=== PATIENT | male | born 1975 ===

== ENCOUNTER 2019-05-08 09:05 | Inpatient (IN) | payer OTHER ==
--- NOTE | 2019-05-07 15:00 | NUR ---
[employer] translation services used to obtained medical history with outside sales account representative Antonette ID # [id number].
[2019-05-08] VITALS (15 sets, daily range): BP systolic 116–164; BP diastolic 73–111
[~2019-05-08] VITALS: Ht 171.4 cm; Wt 101.6 kg
[~2019-05-08 09:05] MED LIST: NKM; ceFAZolin sod 2 GM in D5W 110 ML IVPB ONE
[2019-05-08] MEDS ORDERED: Thrombin 5000 units TOPIC ONE (09:41)
[2019-05-08] MEDS ORDERED: Gelfoam Size TOPIC ONE (09:41)
[2019-05-08] MEDS ORDERED: Rocuronium Bromide 50mg/5ml Inj IV ONE (09:42)
[2019-05-08] MEDS ORDERED: Bacitracin 50000 Units Vial ONE (09:42)
[2019-05-08] MEDS ORDERED: LR 1000ml 1,000 ML IVLG SCH (09:44)
[2019-05-08] MEDS ORDERED: Labetalol 5mg/ml 20ml vial IV PRN (09:45)
[2019-05-08] MEDS ORDERED: oxyCODONE HCL/Acetaminophen 5/325mg ORAL PRN (09:45)
[2019-05-08] MEDS ORDERED: fentaNYL 100 mcg/2 mL IV PRN (09:45)
[2019-05-08] MEDS ORDERED: LORazepam Inj 2mg/ml 1ml IV PRN (09:45)
[2019-05-08] MEDS ORDERED: HYDROcodone/Acetamin 7.5/325 tab ORAL PRN ×3 (09:45→16:00)
[2019-05-08] MEDS ORDERED: Atropine Sulfate 0.4mg/ml inj IVP PRN (09:45)
[2019-05-08] MEDS ORDERED: Meperidine 50mg/ml Inj(FOR RIGORS ONLY) IVP PRN (09:45)
[2019-05-08] MEDS ORDERED: Midazolam 2mg/2ml Inj IVP PRN (09:45)
[2019-05-08] MEDS ORDERED: Acetaminophen (Non formulary) 100 ML IV ONE (09:45)
[2019-05-08] MEDS ORDERED: Metoclopramide 10mg/2ml Inj IVP PRN ×2 (09:45→16:00)
[2019-05-08] MEDS ORDERED: DiphenhydrAMINE 50mg/ml Inj IVP PRN (09:45)
[2019-05-08] MEDS ORDERED: HYDROcodone/Acetamin 5/325 tab ORAL PRN ×2 (09:45→16:00)
[2019-05-08] MEDS ORDERED: Ketorolac 30mg Inj IV PRN ×2 (09:45)
--- NOTE | 2019-05-08 09:45 | Anethesia Preoperative Eval ---
Anesthesia Pre-op PMH/ROS General Date of Evaluation: May 08, 2019 Time of Evaluation: 10:56 Anesthesiologist: Harmeet ASA Score: ASA 3 Mallampati Score Class I : Soft palate, uvula, fauces, pillars visible Class II: Soft palate, uvula, fauces visible Class III: Soft palate, base of uvula visible Class IV: Only hard plate visible Mallampati Classification: Class II Surgeon: Norma Diagnosis: Back Pain Surgical Procedure: ADR C5-6, ACDF C6-7 Anesthesia History: none Family History: no anesthesia problems Allergies: Coded Allergies: No Known Allergies (Unverified , 05/07/19) Medications: see eMAR Patient NPO?: Yes Past Medical History Cardiovascular: Reports: HTN Gastrointestinal/Genitourinary: Reports: GERD Other: obesity - BMI 36 PSxH Narrative: Exploratory Laparotomy Anesthesia Pre-op Phys. Exam Physician Exam Last Vital Signs Date Time Temp Pulse Resp B/P (MAP) Pulse Ox O2 Delivery O2 Flow Rate FiO2 05/08/19 09:42 97.5 75 20 141/92 (108) 96 05/08/19 09:39 Room Air Constitutional: NAD Neurologic: CN 2-12 intact Cardiovascular: RRR Respiratory: CTA Gastrointestinal: S/NT/ND Airway Exam Mallampati Score: Class II MO: full ROM: full Teeth: intact Anesthesia Pre-op A/P Risk Assessment & Plan Assessment: ASA 3 Plan: GA, SED, GlideScope Go Status Change Before Surgery: No Pre-Antibiotics Dru Grams Ancef IV Given Within 1 Hr of Incision: Yes Time Given: 11:16 Tera Ga MD May 08, 2019 09:45
--- NOTE | 2019-05-08 09:59 | Immediate Post-Op Evaluation ---
Immediate Post-Op Evalulation Immediate Post-Op Evalulation Procedure: ADR C5-6, ACDF C6-7 Date of Evaluation: May 08, 2019 Time of Evaluation: 14:03 IV Fluids: 800 LR Blood Products: 0 Estimated Blood Loss: 50 Urinary Output: 250 Blood Pressure Systolic: 164 Blood Pressure Diastolic: 111 Pulse Rate: 70 Respiratory Rate: 16 O2 Sat by Pulse Oximetry: 100 Temperature (Fahrenheit): 97 Pain Score (1-10): 2 Nausea: No Vomiting: No Complications 0 Patient Status: awake, reacts, patent, extubated, none Hydration Status: adequate Dru Grams Ancef IV Given Within 1 Hr of Incision: Yes Time Given: 11:16 Tera Ga MD May 08, 2019 09:59
[2019-05-08] MEDS ORDERED: Lidocaine 1% Plain 30 ml INJ ONE ×2 (10:00→12:43)
[2019-05-08] MEDS ORDERED: Dexamethasone 4mg/ml vial ONE (10:01)
[2019-05-08] MEDS ORDERED: Sodium Chloride 10ml vial INJ ONE (10:01)
[2019-05-08] MEDS ORDERED: Lidocaine 1% MPF 10mg/ml 5ml ONE (10:01)
[2019-05-08] MEDS ORDERED: fentaNYL 100 mcg/2 mL IV ONE ×2 (10:02→11:58)
[2019-05-08] MEDS ORDERED: NS Irrig 1000ml ONE (11:00)
[2019-05-08] MEDS ORDERED: Propofol 1,000mg/ 100ml btl IV ONE (11:00)
[2019-05-08] MEDS ORDERED: Sterile Water Irrig 1000ml IRRIG ONE (11:00)
[2019-05-08] MEDS ORDERED: Neostigmine 1mg/ml 10ml Inj ONE (11:00)
[2019-05-08] MEDS ORDERED: LR 1000ml ONE (11:00)
--- NOTE | 2019-05-08 11:16 | Pre-Procedure Note/Attestation ---
Pre-Procedure Note/Attestation Complete Prior to Procedure Planned Procedure: not applicable Procedure Narrative: Cervical 56 Artificial disc replacement. C67 Anterior cervical discectomy and fusion Indications for Procedure Pre-Operative Diagnosis: herniation C56,67 Attestation I attest that I discussed the nature of the procedure; its benefits; risks and complications; and alternatives (and the risks and benefits of such alternatives ), prior to the procedure, with the patient (or the patient's legal customer support representative). I attest that, if there was a reasonable possibility of needing a blood transfusion, the patient (or the patient's legal customer support representative) was given the [facility] standardized written summary, pursuant to the Jack Terri Blood Safety Act ([place] Health and Safety Code # 1645, as amended). I attest that I re-evaluated the patient just prior to the surgery and that there has been no change in the patient's H&P, except as documented below: Moncho Green MD May 08, 2019 11:16
--- NOTE | 2019-05-08 11:17 | Brief Operative Note ---
Immediate Post Operative Note Operative Note Chief Complaint: neck pain and radiculopathy Pre-op Diagnosis: herniation C56,67 Procedure: Cervical 56 Artificial disc replacement. C67 Anterior cervical discectomy and fusion Post-op Diagnosis: same as pre-op Findings: consistent w/pre-op dx studies Surgeon: Norma Merchandising Specialist: Ashtyn Anesthesiologist: Harmeet Anesthesia: general Specimen: none Complications: none Condition: stable Fluids: IVF Estimated Blood Loss: minimal Drains: none Implant(s) used?: Yes - prodisc c sz 5, nuvasive interlock c sz 6, screws 13x3 Moncho Green MD May 08, 2019 11:17
[2019-05-08] MEDS ORDERED: Glycopyrrolate 0.2mg/ml 1ml Vial ONE (13:19)
--- NOTE | 2019-05-08 13:51 | 48 Hour Post Anesthesia Eval ---
Post Anesthesia Evaluation Procedure: ADR C5-6, ACDF C6-7 Date of Evaluation: May 08, 2019 Time of Evaluation: 16:13 Blood Pressure Systolic: 155 0: 74 Pulse Rate: 72 Respiratory Rate: 18 Temperature (Fahrenheit): 98.2 O2 Sat by Pulse Oximetry: 99 Airway: patent Nausea: No Vomiting: No Pain Intensity: 2 Hydration Status: adequate Cardiopulmonary Status: Stable Mental Status/LOC: patient returned to baseline Follow-up Care/Observations: 0 Post-Anesthesia Complications: 0 Follow-up care needed: N/A Tera Ga MD May 08, 2019 13:51
[2019-05-08] MEDS: Hydromorphone 0.5mg/0.5ml inj IVP PRN ×2 (14:01→14:26)
--- NOTE | 2019-05-08 14:22 | Diagnostic Imaging Report ---
Indication: Intraoperative imaging COMPARISON: None FINDINGS: 9 fluoroscopic images were obtained intraoperatively. Fluoroscopic time 44 seconds. Localization followed by anterior discectomy and fusion demonstrated at C5-6 and C6-7. C5-6 is notable for prosthetic metallic disc. Anterior fixation screws noted at C6-7 with prosthetic disc. IMPRESSION: Intraoperative imaging as described above
--- NOTE | 2019-05-08 15:10 | NUR ---
NURSE NOTES: Received report from Adry [employer]. Pt is a/o x4, in bed. No discomfort noted. Denies any pain at this time. Neck surgical site is C/D/I. Ice pack is on. Lt wrist IV is patent. Bed in lowest position, call light within reach. Will continue to monitor.
--- NOTE | 2019-05-08 15:43 | NUR ---
NURSE NOTES: Pt's BP 160/98. Dr. Kimble was notified and ordered clonidine 0.1mg q4 prn if sbp>150. Noted and carried out.
[2019-05-08] MEDS ORDERED: Morphine Sulfate 2mg/ml Inj(IV/IM USE ONLY) IV PRN (16:00)
[2019-05-08] MEDS ORDERED: Naloxone 0.4mg/ml Inj IVP PRN (16:00)
[2019-05-08] MEDS ORDERED: HYDROmorphone 1mg/ml Carpuject IVP PRN (16:00)
[2019-05-08] MEDS: Dexamethasone 4mg/ml vial IVP SCH ×2 (16:00→23:38)
[2019-05-08] MEDS ORDERED: Milk of Magnesia 30ml Ud ORAL PRN (16:00)
[2019-05-08] MEDS ORDERED: Morphine Sulfate 4mg/ml Inj (IV USE ONLY) IV PRN (16:00)
[2019-05-08] MEDS ORDERED: Chloraseptic Spray 20mL Bottle ORAL PRN (16:30)
[2019-05-08] MEDS: NS w/KCl 20mEq 1000ml 1,000 ML IV SCH (17:42)
[2019-05-08] MEDS: Docusate 100mg cap ORAL SCH (18:39)
[2019-05-08] MEDS: Docusate Sod/Senna tab ORAL SCH (18:39)
[2019-05-08] MEDS: ceFAZolin sod 1 GM in D5W 55 ML IV SCH (18:40)
--- NOTE | 2019-05-08 19:30 | NUR ---
NURSE NOTES: Receive a report from DYLAN Torres. Round is done. Pt is awake and alert. No acute distress noted. No noted nausea/ vomiting, headache. Op site is clear without bleeding signs. On ice pack on op site. IV running on left wrist without signs of infiltration. Call light within reach. Will continue to monitor.
--- NOTE | 2019-05-08 19:34 | NUR ---
HAND-OFF: Report given to DYLAN Falcon. Pt is stable.
[2019-05-08] MEDS: Morphine Sulfate 4mg/ml Inj (IV USE ONLY) IV PRN (20:23)
--- NOTE | 2019-05-08 21:00 | NUR ---
NURSE NOTES: Left side shoulder to neck pain relieved after pain medication. No noted nausea or vomiting. Keep ice pack on op site and back. Show how to move with body alignment. Pt verbalizes understanding. Will continue to monitor.
[2019-05-09] VITALS: BP 116/69
--- NOTE | 2019-05-09 02:00 | Operative Note - Dictated ---
DATE OF OPERATION: 05/08/2019 SURGEON: Moncho Green M.D., Orthopaedic Spine Surgeon. COMPLEX HUMAN RESOURCES MANAGER: TIP Parikh. ANESTHESIOLOGIST: Tera Ga M.D. PREOPERATIVE DIAGNOSES: 1. Intractable neck pain. 2. Radiculopathy. 3. Herniation, C5-C6, C6-C7. 4. Neural foraminal stenosis, C5-C6, C6-C7. 5. Stenosis. POSTOPERATIVE DIAGNOSES: 1. Intractable neck pain. 2. Radiculopathy. 3. Herniation, C5-C6, C6-C7. 4. Neural foraminal stenosis, C5-C6, C6-C7. 5. Stenosis. PROCEDURE PERFORMED: 1. Anterior cervical discectomy and artificial disc replacement of C5-C6 using a Synthes ProDisc-C, size 5 height. 2. Anterior cervical discectomy and fusion of C6-C7 using NuVasive Interlock C size 6 PEEK cage and three screws of 14 mm length and 1 mL of Osteocel allograft bone and local autograft. 3. Use of intraoperative microscope. 4. Motor-evoked potential monitoring. 5. Somatosensory-evoked potential monitoring. 6. Supervision and interpretation of fluoroscopy. COMPLICATIONS: None. ANESTHESIA: General. ESTIMATED BLOOD LOSS: Less than 100 mL. INDICATIONS FOR SURGERY: This patient is a 43-year-old male who has a history of diagnoses as listed above. As of result of this, the patient sustained intractable neck pain, radiculopathy, herniation of C5-C6 and C6-C7, neural foraminal stenosis of C5-C6 and C6-C7, and stenosis. We tried a course of conservative management, but despite this course, there was still a significant component of persistent, recalcitrant neck pain and arm pain. The MRI demonstrated significant neural foraminal compromise secondary to disc herniations at C5-C6 and C6-C7. We had a long discussion with Michael regarding the risks and benefits of surgery. Our discussion included, but was not limited to nonoperative management, chiropractic management, another epidural steroid injection as well as definitive management in the form of surgery. We recommended an artificial disc replacement of cervical C5-C6 and anterior cervical discectomy and fusion of cervical C6-C7 as final definitive management. We reviewed the risks and benefits of surgery with the patient. Our discussion included a comprehensive review of the clinical issues and the nature of the clinical decision. We reviewed the alternatives, including doing nothing. The patient elected to proceed accordingly with an artificial disc replacement of cervical C5-C6 and anterior cervical discectomy and fusion of cervical C6-C7. We had a long discussion regarding the risks, alternatives, and benefits of surgery. Our description of the risks included a discussion in person as well as a signed consent which detailed all pertinent risks from the procedure itself. Briefly, our discussion included but was not limited to infection, bleeding, pseudarthrosis, spinal cord injury, neurovascular injury, dural tear, CSF leak, neuropathy, paralysis, permanent weakness/drop foot/drop arm, paresthesias, blindness, palsy, and weakness. The patient understood there may be a need for a revision surgery or additional procedures. Approach-related complications including dysphonia, dysphagia, blindness, permanent vocal cord and neural injury, hematoma, swallowing and breathing difficulty. Medical complications were reviewed including liver, kidney, shock, cardiopulmonary failure, anesthesia complications including , swelling, damage to the musculature, larynx/voice injury or loss, esophagus/throat, trachea, blood vessels and muscles/muscular sprain and lungs/pneumothorax during this surgical procedure; injury to deeper structures may be temporary or permanent. After this review of risks, the patient understood these and elected to proceed. A written and verbal consent was given. We discussed the pros and cons of all the alternatives. We discussed the uncertainties associated with the decision. Afterwards, I assessed the patient's understanding and explored their preferences. All questions were answered and no guarantees were given. Medical clearance was obtained prior to surgery. INTRAOPERATIVE FINDINGS: At C5-C6, there was a very large disc herniation. This was encountered through a tear in the posterior longitudinal ligament. The tear itself was approximately 30 degrees in a fjlnzofl-yf-maalyy direction. Through this tear, I noticed the base of a disc herniation. This was probed with a Microsect curette and mobilized. The large fragment of the disc was resected behind the PLL and was found to be encroaching posteriorly on the thecal sac, spinal cord, and neural foramina, left more than right-sided. The disc itself was spongy. The disc was not calcified in anyway or degenerative. At C6-C7, I encountered a large disc herniation as well. This was visualized through a tear in the posterior longitudinal ligament. The tear in the PLL was approximately 20 degrees cephalad to caudad. This tear was probed with a Microsect 1-B curette and I noticed the base of a disc herniation. This base was resected circumferentially with curettage, Microsect 1-B and 2-B, and afterwards with Kerrison rongeurs size 1 and size 2. The disc herniation itself had a pedunculated base and did a disc herniation which was left more than right-sided and encroaching on the thecal sac and spinal cord itself. The disc itself was not calcified or degenerative in anyway. The disc itself was spongy with appropriate disc height. This led me to believe this was not a degenerative process. DESCRIPTION OF PROCEDURE: Under the benefit of general endotracheal anesthesia and with the assistance of the entire operative team, the patient was moved from the rmanteca onto the operative table in the supine position. The head was secured and carefully positioned appropriately. Bilateral arms were secured with Gel Pads and foam and all bony prominences were padded. For the bilateral lower extremities, SCD and AARTI hose were placed for DVT prophylaxis. A surgical timeout was called, which corroborated our planned procedure of an artificial disc replacement of cervical C5-C6 and anterior cervical discectomy and fusion of cervical C6-C7. Preoperative antibiotics were administered within 30 minutes of the incision for antibiotic prophylaxis. Using lateral fluoroscopic radiography, the operative levels were delineated. Next, the wound was prepped and draped with chlorhexidine and sterile drapes. An incision was based on lateral fluoroscopy and we centered our incision at the C5-C6 and C6-C7 interspace and next, using a standard Blake-Winston anterior-based approach, the incision was taken down through the skin and subcutaneous tissues until the vertebral bodies and their corresponding disc spaces were visualized. A needle was placed into the interspace to confirm placement of the operative interspace and we performed the remainder of procedure under microscopic visualization. Next, using bipolar and Bovie cautery to ensure meticulous hemostasis, the longus colli was mobilized bilaterally and retractors were placed deep to the longus colli bilaterally to address retraction. Next, we turned our attention to the radical anterior discectomy. This was initially performed at C5-C6 first by using a 15 blade scalpel followed by narrow pituitaries and a Microsect 5-B curette was used to denude the endplate of all cartilaginous tissue. Next, using a [employer] Pankaj AM8 drill bit, the vertebral endplates were denuded of all residual cartilage in a vtbw-gs-mhtn and xlkiw-wh-xfsbx fashion, and ultimately the posterior uncinate joints bilaterally and posterior osteophytic lips and margins were carefully denuded until clear visualization of the posterior longitudinal ligament was possible. An endplate preparation was performed in the exact same fashion using an intervertebral blacktop spreader, sequential distraction was obtained throughout the disc space. We saw a tear/rent in the PLL and this was carefully mobilized and dissected using a Microsect 1-B curette until we visualized a discrete disc herniation with compression of the spinal cord as well as neural foramina which was left more than right sided. This neural foraminal compression was carefully resected using a Kerrison-1 and Kerrison-2 rongeurs until complete decompression of the spinal cord was visualized and complete decompression of the neural foramina and nerve root therein as well as the axilla and lateral margin of the nerve root was visualized and subsequently completely decompressed. The family was notified at one-hour intervals throughout the procedure to provide for consistent updates. We next turned our attention towards trialing our implant within the disc space. We initially tried size 5 and this ProDisc Cervical spacer fit well in regard to depth and width. This implant was opened and prepared. Next, under direct visualization, I confirmed excellent fit in respect to the anterior and posterior vertebral bodies, the uncinate joints, and in regard to toggle. Once satisfied with this placement on serial AP and lateral fluoroscopy, I turned my attention towards cutting our brad. These were cut in the bones using a reciprocating drill and afterwards all free fragments of bone were irrigated. Next, FloSeal was placed into the interspace, then removed in its entirety and the implant was inserted using fluoroscopic guidance. Next, the Synthes ProDisc C size 5 ADR was then carefully advanced and secured into the intervertebral space under direct visualization and with supervision of AP and lateral fluoroscopic views. I next turned my attention towards the radical anterior discectomy. This was then performed at cervical C6-C7 first by using a 15 blade scalpel followed by narrow pituitaries and a Microsect 5-B curette was used to denude the endplate of all cartilaginous tissue. Next, using a [employer] AM8 drill bit, the vertebral endplates were denuded of all cartilaginous tissue in a gzjn-rx-krxv and dxefz-lg-qctnv fashion, and ultimately the posterior uncinate joints bilaterally and posterior osteophytic lips and margins were carefully denuded until wide and thorough visualization of the posterior longitudinal ligament was possible. At this level, the endplate preparation was performed in the exact same fashion using an intervertebral blacktop spreader, sequential distraction was obtained throughout the disc space. We saw a tear/rent in the PLL and this was carefully mobilized and dissected using a Microsect 1-B curette until we visualized an obvious disc herniation with compression of the spinal cord as well as neural foramina, which was left more than right sided. This neural foraminal compression was carefully resected using a Kerrison-1 and Kerrison-2 rongeurs until complete decompression of the spinal cord was visualized and complete decompression of the neural foramina and nerve root therein as well as the axilla and lateral margin of the nerve root was visualized and subsequently completely decompressed. We next turned our attention towards trialing our implant within the disc space. We initially tried size 5 and afterwards size 6 trial from the NuVasive Interlock system at C6-C7, which appeared to be appropriate under AP and lateral fluoroscopy as well as in terms of its height, depth, width, and lack of toggle. The PEEK (polyetheretherketone) interbody cage was then packed with allograft bone from Osteocel and local autograft bone matrix. Next, it was then carefully advanced and secured into its intervertebral space under direct visualization and with supervision of AP and lateral fluoroscopic views. We next turned our attention towards plating. Plating was performed at each level with the NuVasive Interlock-C plating system. A total of three screws, size 14 mm in length were inserted and confirmed under AP and lateral fluoroscopy and confirmed to be in excellent position. After a finger sweep, we confirmed removal of all sponges. The retractor was removed and we next turned our attention to meticulous hemostasis with FloSeal and bipolar cautery. After the sponge and needle count was again found to be correct with our second count, we next turned our attention to closure. The wound was again copiously irrigated with antibiotic-impregnated saline. Closure consisted of 4-0 clear nylon for the platysma, and 5-0 clear nylon for the superficial skin. Final skin closure and dressings consisted of Dermabond. Prior to final closure, a final radiograph was obtained which demonstrated the hardware was intact with excellent position throughout. The patient tolerated the procedure well. The patient was carefully extubated after the conclusion of surgery. We discussed the findings of the surgery with the family upon completion of the case. At this point, the patient was transferred to the spine floor for further observation. Moncho Green M.D. DR: RHYS JOB#: [id number] CC:
[2019-05-09] MEDS: NS w/KCl 20mEq 1000ml 1,000 ML IV SCH ×2 (02:49→12:30)
[2019-05-09] MEDS: ceFAZolin sod 1 GM in D5W 55 ML IV SCH ×2 (02:49→10:59)
[2019-05-09] MEDS: Morphine Sulfate 4mg/ml Inj (IV USE ONLY) IV PRN (03:03)
[2019-05-09 04:00] VITALS: BP 120/73
[2019-05-09] MEDS: Dexamethasone 4mg/ml vial IVP SCH ×2 (05:33→11:59)
--- NOTE | 2019-05-09 07:30 | NUR ---
HAND-OFF: Report given to DYLAN Wyatt. Round is done. Pt is having breakfast. No noted acute distress.
[2019-05-09 08:00] VITALS: BP 124/73
--- NOTE | 2019-05-09 08:02 | NUR ---
NURSE NOTES: Patient is alert and oriented,respiration unlabored.derma IV fluids infusing as ordered. lan dressing noted to the throat surgical area intact,patient sitting up in bed and eating breakfast.Patient in good spirits patient anticipating to be discharge today. Call light within reach.
[2019-05-09] MEDS: Docusate 100mg cap ORAL SCH (09:03)
[2019-05-09] MEDS: Docusate Sod/Senna tab ORAL SCH (09:03)
--- NOTE | 2019-05-09 10:46 | NUR ---
PT Note PT carl completed. Patient was instructed on HEP and proper neck care. Patient verbalized and was able to demonstrate his understanding. No further PT needed at this time. Addendum: 05/09/19 at 1046 by JASWINDER JIMÉNEZ PT Amended: Links added.
[2019-05-09 12:00] VITALS: BP 109/55
--- NOTE | 2019-05-09 13:44 | NUR ---
NURSE NOTES: Patient waiting for spouse to take patient home,patient discharge with discharge instructions given Patient has discharge medication that was retrieve from pharmacy.patient has his personal belongings.IV removed. and ID name band removed.
--- NOTE | 2019-05-09 13:45 | Discharge Summary ---
DATE OF ADMISSION: 05/08/2019 DATE OF DISCHARGE: 05/09/2019 PROCEDURE PERFORMED DURING ADMISSION: Artificial disc replacement of C5-C6 and anterior cervical discectomy and fusion of C6-C7. REASON FOR ADMISSION: Herniation, C5-C6 and C6-C7. HOSPITAL COURSE/TREATMENT RENDERED: DISCHARGE PHYSICAL EXAMINATION: 1. The patient was ambulating with and without the assistance of physical therapy. 2. Prior to discharge home, incision was clean and dry with minimal swelling. 3. Follows commands. 4. Alert and oriented. 5. Doe discontinued, voiding. 6. Incentive spirometer at bedside. 7. IVF hep-locked. MOTOR: Demonstrates expected postoperative bulk and tone. Moves biceps, triceps, and deltoid musculature on command. Moves hip flexors, quadriceps, tibialis anterior, EHL, gastrocsoleus musculature on command as well. TREATMENT RENDERED: 1. Daily nursing care. 2. Physical Therapy. 3. Occupational Therapy. 4. Intravenous medications. 5. Oral medications. 6. Daily postoperative examinations by Spine Surgery team. CONDITION OF PATIENT ON DISCHARGE: The condition on discharge is stable for discharge to home. DISCHARGE INSTRUCTIONS: Our specific instructions relating to physical activity, medications, diet, and follow-up care are detailed in our standard operative folder and were given to this patient prior to surgery. We will however summarize these briefly as stated below. Regarding physical activity, we would like the patient to limit his flexion, extension, and rotation. We also require a limitation on his bending, lifting, and twisting. All medication has been called in prior to surgery to their pharmacy of choice. They can resume their regular diet once tolerated. We would like them to shower and limit soaking the wound in a tub/Jacuzzi/the ocean for a period of one month or until the incision is completely healed. We will have him follow up in our office in three weeks' time for his regularly scheduled appointment. They understand to call our office tomorrow to schedule the time for his three-week followup appointment. The patient will notify us should they experience any increase in the severity of pain, redness, swelling, or drainage from their incision. Moncho Green M.D. DR: RHYS JOB#: [id number] CC:
--- NOTE | 2019-05-09 14:35 | NUR ---
NURSE NOTES: .Patient discharged and accompany down to private vehicle,patient spouse to drive patient home.
== END 2019-05-09 14:30 | disposition home or self-care (01) | DRG 473 ==
LOC: SDSOVERFLO 09:05 → 3E 15:17
PROC: 0RR30JZ Replacement of Cervical Vertebral Disc with Synthetic Substitute, Open Approach (ICD-10-PCS; principal; 2019-05-08 10:00)
PROC: 0RG10A0 Fusion of Cervical Vertebral Joint with Interbody Fusion Device, Anterior Approach, Anterior Column, Open Approach (ICD-10-PCS; principal; 2019-05-08 10:00)
PROC: 0RB30ZZ Excision of Cervical Vertebral Disc, Open Approach (ICD-10-PCS; principal; 2019-05-08 10:00)
PROC: 01N10ZZ Release Cervical Nerve, Open Approach (ICD-10-PCS; principal; 2019-05-08 10:00)
DX: M50.122 Cervical disc disorder at C5-C6 level with radiculopathy (principal); M48.02 Spinal stenosis, cervical region; I10 Essential (primary) hypertension; K21.9 Gastro-esophageal reflux disease without esophagitis
CPT/HCPCS: 36415; 72040; 76000; 86850; 86900; 86901; 87081; C9399; J2405; J2710